=== PATIENT | female | born 1970 ===

== ENCOUNTER 2023-03-27 01:05 | Emergency (ER) | payer OTHER, SELFPAY ==
--- OUTSIDE RECORDS SUMMARY | 2023-03-27 01:07 | XMS REPORT | Clinical Summary ---
:1970 Author Organization [facility] MD [facility] Address [address] [place] [address] Care Team Providers Name Role Phone Donald You MD Unavailable Unavailable Amandeep Garcia MD Primary Care Provider Allergies No known active allergies Medications Medication Sig Dispensed Refills Start Date End Date Status ALPRAZolam (XANAX) 0.5 0 07/09/2019 Active mg tablet azelastine (ASTELIN) 0 07/09/2019 Active 137 mcg/spray nasal spray VYVANSE 30 mg capsule 0 06/24/2019 Active BYSTOLIC 10 mg tablet 0 06/13/2019 Active olopatadine (PATADAY) 0 06/29/2019 Active 0.2% drop ophthalmic solution valsartan-hydrochloroth 0 07/09/2019 Active iazide (DIOVAN-HCT) 320-12.5 mg per tablet zolpidem (AMBIEN) 10 mg 0 06/19/2019 Active tablet ibuprofen/famotidine Take 1 tablet by 0 Active ([place]IS ORAL) mouth as needed. Active Problems Problem Noted Date Cyst of breast 07/11/2019 Surgical History Surgery Date Site/Laterality Comments BACK SURGERY 01/10/1991 For scoliosis CHOLECYSTECTOMY 10/09/2000 - 10/08/2001 SECTION, CLASSIC x 3 Medical History Medical History Date Comments Hypertension 03/09/2010 Cyst of breast 03/09/2019 Gastric ulcer 10/09/2013 Gallstone 05/09/2001 Scoliosis 1987 Family History Medical History Relation Name Comments -Thoracic or Lung Maternal Grandmother Noemi Yang lung can cer Hodgkin's lymphoma Son Breast cancer Neg Hx Ovarian cancer Neg Hx Relation Name Status Comments Maternal Grandmother Noemi Yang Son Social History Tobacco Use Types Packs/Day Years Used Date Smoking Tobacco: Former Cigarettes 0.3 3 10/2002 - 10/09/2005 Smokeless Tobacco: Never Alcohol Use Standard Drinks/Week Comments Not Currently 0 (1 standard drink = 0.6 oz pure Very s eldom. Not sure of last time alcohol) Sex Assigned at Date Recorded Not on file Obstetrics History Para Term AB IAB SAB Ectopic Multiple Living Live Births 5 4 1 Date Outcome GA Total Labor/2nd/3rd Weight Sex Delivery Anes PTL Patricia A 1 A5 Name Clin Labor Para Para Para Para AB Comments Age of parity: 22 Age of menarche: 17 OCP: 12 years HRT: none Fertility treatments: none : 2 months Menopausal status: premenopausal (LMP: 0 06/28/19) Bra Size: C Last Filed Vital Signs Not on file Plan of Treatment Health Maintenance Due Date Last Done Comments COVID-19 Vaccination (#1) 1970 Results Not on fileafter 03/27/2022 Insurance Payer Benefit Plan / Subscriber ID Effective Dates Phone Addre ss Type Group [employer] MANAGED [employer] PPO POS [id number] 2017-Present [address] [place] [address] Care Teams Biomechanical Engineer Relationship Specialty Start Date End Date Donald You MD PCP - External Referring Family Practice 9 Amandeep Garcia MD PCP - General Breast Surgery 07/03/19 [address] [place] [address]
[2023-03-27 02:04] LABS: Absolute Lymphocytes (CBC) 1.8 K/uL (0.7-4.9); Hematocrit 32.3 % (36.0-45.0); Lymphocytes % 25.1 % (15.3-44.8); MCV 88.1 fL (80-100); MPV 8.5 fL (7.6-11.3); RBC Red Blood Cell Count 3.67 M/uL (3.86-4.86)
[2023-03-27 02:05] LABS: Protime INR 1.17
[2023-03-27 02:25] LABS: ALT/SGPT 24 U/L (13-56); AST/SGOT 13 U/L (15-37); Albumin 3.5 g/dL (3.4-5.0); Alkaline Phosphatase 81 U/L (45-117); BUN Blood Urea Nitrogen 18 mg/dL (7-18); Barbiturates NEGATIVE (NEGATIVE); Benzodiazepines NEGATIVE (NEGATIVE); Bicarbonate 27 mEq/L (21-32); Bilirubin Total 0.2 mg/dL (0.2-1.0); Cocaine NEGATIVE (NEGATIVE); Glomerular Filtration Rate 63 ml/min (=/>90); Glucose Level 110 mg/dL (74-106); METHAMPHETAM NEGATIVE (NEGATIVE); Magnesium 2.1 mg/dL (1.6-2.4); Methadone NEGATIVE (NEGATIVE); NT PRO-BNP 175 pg/mL (<125); Opiates NEGATIVE (NEGATIVE); Phencyclidine NEGATIVE (NEGATIVE); Potassium 3.3 mEq/L (3.5-5.1); Protein, Total 7.5 g/dL (6.4-8.2); Sodium Level 137 mEq/L (136-145); THC Cannibis POSITIVE (NEGATIVE); Troponin High Sensitivity 5.5 pg/mL (<58.9)
[2023-03-27 02:26] LABS: Bilirubin Direct < 0.1 mg/dL (0-0.2); Bilirubin Indirect, Calculated ND mg/dL (0.2-0.8)
--- NOTE | 2023-03-27 04:02 | ER ---
Nurse's Notes [facility] Name: Masha Parikh Age: 52 yrs Sex: Female : 1970 Arrival Date: 03/27/2023 Time: 01:05 Bed 16 Private MD: Diagnosis: Anxiety disorder, unspecified;Syncope Near Presentation: 03/27 01:25 Chief complaint: EMS states: "We were called out for not feeling well. When we arrived vc1 she was shaky with some anxiety, just seemed really nervous, bp systolic was in the 190's but came down when we arrived here. She said they had just ate and she took her ambien when she started to feel this way.". Coronavirus screen: Vaccine status: Patient reports receiving the 2nd dose of the covid vaccine. [place] Client denies travel out of the [place] in the last 14 days. At this time, the client does not indicate any symptoms associated with coronavirus-19. Ebola Screen: Patient negative for fever greater than or equal to 101.5 degrees Fahrenheit, and additional compatible Ebola Virus Disease symptoms Patient denies exposure to infectious person. Patient denies travel to an Ebola-affected area in the 21 days before illness onset. No symptoms or risks identified at this time. Initial Sepsis Screen: Does the patient meet any 2 criteria? No. Patient's initial sepsis screen is negative. Does the patient have a suspected source of infection? No. Patient's initial sepsis screen is negative. Risk Assessment: Do you want to hurt yourself or someone else? Patient reports no desire to harm self or others. Onset of symptoms was March 27, 2023. 01:25 Method Of Arrival: EMS: [facility] vc1 01:25 Acuity: ANGELO 3 vc1 01:25 Care prior to arrival: IV initiated. 20 GA, in the left antecubital area. vc1 Triage Assessment: 01:30 General: Appears uncomfortable, Behavior is cooperative, anxious. Pain: Denies pain. vc1 EENT: No deficits noted. No signs and/or symptoms were reported regarding the EENT system. Neuro: Level of Consciousness is awake, alert, obeys commands, Oriented to person, place, time, situation, Appropriate for age Reports dizziness. Cardiovascular: No deficits noted. Respiratory: Airway is patent Respiratory effort is even, unlabored, Respiratory pattern is regular, symmetrical. GI: No deficits noted. No signs and/or symptoms were reported involving the gastrointestinal system. : No deficits noted. No signs and/or symptoms were reported regarding the genitourinary system. Derm: No deficits noted. No signs and/or symptoms reported regarding the dermatologic system. Musculoskeletal: No deficits noted. No signs and/or symptoms reported regarding the musculoskeletal system. CARGOMAN: 01:30 LMP 03/17/2023 vc1 Historical: - Allergies: : No Known Allergies; vc1 - Home Meds: : Tramadol Oral [Active]; valsartan-hydrochlorothiazide oral [Active]; Bystolic oral vc1 [Active]; - PMHx: Insomnia; Hypertensive disorder; Chronic Joint Pain; vc1 - PSHx: None; vc1 - Immunization history:: Client reports receiving the 2nd dose of the Covid vaccine. - Social history:: Smoking status: Patient denies any tobacco usage or history of. Patient uses CBD oil. - Family history:: not pertinent. Screenin: Abuse screen: Denies threats or abuse. Nutritional screening: No deficits noted. vc1 Tuberculosis screening: No symptoms or risk factors identified. 01:30 [facility] ED Fall Risk Assessment (Adult) History of falling in the last 3 months, vc1 including since admission No falls in past 3 months (0 pts) Confusion or Disorientation No (0 pts) Intoxicated or Sedated No (0 pts) Impaired Gait No (0 pts) Mobility Assist Device Used No (0 pt) Altered Elimination No (0 pt) Score/Fall Risk Level 0 - 2 = Low Risk Oriented to surroundings, Maintained a safe environment, Educated pt \\T\\ family on fall prevention, incl call for assistance when getting out of bed. Assessment: 02:28 Reassessment: Patient and/or family updated on plan of care and expected duration. Pain vc1 level reassessed. Patient is alert, oriented x 3, equal unlabored respirations, skin warm/dry/pink. 03:30 Reassessment: No changes from previously documented assessment. Patient and/or family vc1 updated on plan of care and expected duration. Pain level reassessed. Patient is alert, oriented x 3, equal unlabored respirations, skin warm/dry/pink. Vital Signs: 01:25 BP 142 / 82; Pulse 76; Resp 13; Temp 97.9; Pulse Ox 100% ; Weight 92.08 kg; Height 5 vc1 ft. 4 in. ; Pain 0/10; 02:27 Pulse 63; Resp 12; Pulse Ox 99% ; vc1 02:30 BP 127 / 68; vc1 03:30 BP 137 / 67; Pulse 73; Resp 16; Pulse Ox 100% ; vc1 01:25 Body Mass Index 34.84 (92.08 kg, 162.56 cm) vc1 01:25 Pain Scale: Adult vc1 [place] Coma Score: 03:45 Eye Response: spontaneous(4). Motor Response: obeys commands(6). Verbal Response: sp4 oriented(5). Total: 15. NIH Stroke Scale Scores: 03:45 NIHSS Score: 0 sp4 ED Course: 01:06 Patient arrived in ED. sb4 01:14 Ari Caruso MD is Attending Physician. sp4 01:16 Jennifer Morales RN is Primary Nurse. vc1 01:25 Maintain EMS IV. Dressing intact. Good blood return noted. Site clean \\T\\ dry. vc1 01:27 Triage completed. vc1 01:30 Arm band placed on left wrist. vc1 01:30 Patient has correct armband on for positive identification. Bed in low position. Call vc1 light in reach. Client placed on continuous cardiac and pulse oximetry monitoring. NIBP monitoring applied. 01:46 Basic Metabolic Panel Sent. vc1 01:46 CBC with Diff Sent. vc1 01:46 LFT's Sent. vc1 01:46 Magnesium Sent. vc1 01:46 NT PRO-BNP Sent. vc1 01:46 PT-INR Sent. vc1 01:46 Troponin HS Sent. vc1 01:46 Urine Drug Screen Sent. vc1 02:15 CT Head Brain wo Cont In Process Unspecified. EDMS 02:22 XRAY Chest (1 view) In Process Unspecified. EDMS 04:41 No provider procedures requiring assistance completed. IV discontinued, intact, vc1 bleeding controlled, No redness/swelling at site. Pressure dressing applied. Administered Medications: No medications were administered Medication: 04:43 VIS not applicable for this client. vc1 Outcome: 04:02 Discharge ordered by . sp4 04:42 Discharged to home ambulatory. vc1 04:42 Condition: good 04:42 Discharge instructions given to patient, Instructed on discharge instructions, follow up and referral plans. Demonstrated understanding of instructions, follow-up care. 04:43 Patient left the ED. vc1 NIH Stroke Scale - NIH Stroke Score Date: 03/27/2023 Time: 03:45 Total Score = 0 10. Dysarthria (speech clarity - read or repeat words) - 0(Normal) 11. Extinction and Inattention (visual/tactile/auditory/spatial/personal) - 0(No abnormality) 1a. Level of Consciousness (LOC) - 0(Alert) 1b. Level of Consciousness (LOC) (Month \\T\\ Age) - 0(Both) 1c. LOC Commands (Open \\T\\ Closes Eyes/R Programmer) - 0(Both) 2. Best Gaze (Lateral Gaze Paresis) - 0(Normal) 3. Visual Field Loss - 0(No visual loss) 4. Facial Palsy - 0(Normal) 5a. Left Arm: Motor (10-second hold) - 0(No drift) 5b. Right Arm: Motor (10-second hold) - 0(No drift) 6a. Left Leg: Motor (5-second hold - always test supine) - 0(No drift) 6b. Right Leg: Motor (5-second hold - always test supine) - 0(No drift) 7. Limb Ataxia (finger/nose \\T\\ heel/hickey - test with eyes open) - 0(Absent) 8. Sensory Loss (pinprick arms/legs/face) - 0(Normal) 9. Best Language: Aphasia (description/naming/reading) - 0(No aphasia) Initials: sp4 Signatures: Dispatcher [employer] EDMS Jennifer Morales RN RN vc1 Sera Miner PAOraliaC PA-C sb4 Ari Caruso MD MD sp4
--- NOTE | 2023-03-27 04:02 | EDPHYS ---
Physician Documentation [facility] Name: Masha Parikh Age: 52 yrs Sex: Female : 1970 Arrival Date: 03/27/2023 Time: 01:05 Bed 16 Private MD: ED Physician Ari Caruso HPI: 03/27 01:14 This 52 yrs old Female presents to ER via Unassigned with complaints of sp4 Doesn't Feel Right. 03:45 52-year-old female presents for her cute onset of dizziness near syncopal episode at sp4 home associated with some anxiety. Patient states she ate [employer] and this has provoked dizziness after eating. Patient denies syncope, denied vomiting, she takes valsartan nebivolol for her blood pressure. She uses CBD oils.. 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 - Social history:: Smoking status: Patient denies any tobacco usage or history of. Patient uses CBD oil. - Family history:: not pertinent. ROS: 03:45 Constitutional: Negative for fever, chills, and weight loss, positive for near syncope sp4 and dizziness Eyes: Negative for injury, pain, redness, and discharge, ENT: Negative for injury, pain, and discharge, Neck: Negative for injury, pain, and swelling, Cardiovascular: Negative for chest pain, palpitations, and edema, Respiratory: Negative for shortness of breath, cough, wheezing, and pleuritic chest pain, Abdomen/GI: Negative for abdominal pain, nausea, vomiting, diarrhea, and constipation, Back: Negative for injury and pain, : Negative for injury, bleeding, discharge, and swelling, MS/Extremity: Negative for injury and deformity, Skin: Negative for injury, rash, and discoloration, Neuro: Negative for headache, weakness, numbness, tingling, and seizure, Psych: Negative for depression, anxiety, Allergy/Immunology: Negative for hives, rash, and allergies Endocrine: Negative for neck swelling, polydipsia, polyuria, polyphagia, and weight changes Hematologic/Lymphatic: Negative for swollen nodes, abnormal bleeding, and unusual bruising Exam: 03:45 Constitutional: This is a well developed, well nourished patient who is awake, alert, sp4 and in no acute distress. Head/Face: Normocephalic, atraumatic. Eyes: Pupils equal round and reactive to light, extra-ocular motions intact. Lids and lashes normal. Conjunctiva and sclera are not injected. Cornea within normal limits. Periorbital areas with no swelling, redness, or edema. ENT: Nares patent. No nasal discharge, no septal abnormalities noted. Tympanic membranes are normal and external auditory canals are clear. Oropharynx with no redness, swelling, or masses, exudates, or evidence of obstruction, uvula midline. Mucous membranes moist. Neck: Trachea midline, no thyromegaly or masses palpated, and no cervical lymphadenopathy. Supple, full range of motion without nuchal rigidity, or vertebral point tenderness. Chest/axilla: Normal chest wall appearance and motion. Nontender with no deformity. No lesions are appreciated. Cardiovascular: Regular rate and rhythm with a normal S1 and S2. No gallops, murmurs, or rubs. Normal PMI, no JVD. No pulse deficits. Respiratory: Lungs have equal breath sounds bilaterally, clear to auscultation and percussion. No rales, rhonchi or wheezes noted. No increased work of breathing, no retractions or nasal flaring. Abdomen/GI: Soft, non-tender, with normal bowel sounds. No distension or tympany. No guarding or rebound. No evidence of tenderness throughout. Back: No spinal tenderness. No costovertebral tenderness. Skin: Warm, dry with normal turgor. Normal color with no rashes, no lesions, and no evidence of cellulitis. MS/ Extremity: Pulses equal, no cyanosis. Neurovascular intact. Full, normal range of motion. Neuro: Awake and alert, GCS 15, oriented to person, place, time, and situation. Cranial nerves II-XII grossly intact. Motor strength 5/5 in all extremities. Sensory grossly intact. Psych: Awake, alert, with orientation to person, place and time. Behavior, mood, and affect are within normal limits 03:45 ECG was reviewed by the Attending Physician. EKG reveals sinus bradycardia at rate of 59, otherwise normal EKG Vital Signs: 01:25 BP 142 / 82; Pulse 76; Resp 13; Temp 97.9; Pulse Ox 100% ; Weight 92.08 kg; Height 5 vc1 ft. 4 in. ; Pain 0/10; 02:27 Pulse 63; Resp 12; Pulse Ox 99% ; vc1 02:30 BP 127 / 68; vc1 03:30 BP 137 / 67; Pulse 73; Resp 16; Pulse Ox 100% ; vc1 01:25 Body Mass Index 34.84 (92.08 kg, 162.56 cm) vc1 01:25 Pain Scale: Adult vc1 NIH Stroke Scale Scores: 03:45 NIHSS Score: 0 sp4 [place] Coma Score: 03:45 Eye Response: spontaneous(4). Motor Response: obeys commands(6). Verbal Response: sp4 oriented(5). Total: 15. MDM: 01:25 Patient medically screened. sp4 03:59 Differential Diagnosis altered mental status, Panic attack, anxiety.. Data reviewed: sp4 vital signs. Data reviewed: nurses notes, EMS record, lab test result(s), EKG, radiologic studies, CT scan, plain films. Consideration of Admission/Observation Escalation of care including admission/observation considered. ED course: Today's work-up basically revealed mildly depressed potassium but is otherwise normal. CT head is normal, chest x-ray is normal.. 03/27 01:24 Order name: Urine Drug Screen; Complete Time: 03:45 03/27 01:24 Order name: Basic Metabolic Panel; Complete Time: 03:45 03/27 01:24 Order name: CBC with Diff; Complete Time: 03:45 03/27 01:24 Order name: LFT's; Complete Time: 03:45 03/27 01:24 Order name: Magnesium; Complete Time: 03:45 03/27 01:24 Order name: NT PRO-BNP; Complete Time: 03:45 03/27 01:24 Order name: PT-INR; Complete Time: 03:45 03/27 01:24 Order name: Troponin HS; Complete Time: 03:45 03/27 01:24 Order name: XRAY Chest (1 view) 4 03/27 01:25 Order name: CT Head Brain wo Cont 4 03/27 01:24 Order name: EKG; Complete Time: 01:25 4 03/27 01:24 Order name: Cardiac monitoring; Complete Time: 01:34 4 03/27 01:24 Order name: EKG - Nurse/Tech; Complete Time: 02:17 4 03/27 01:24 Order name: IV Saline Lock; Complete Time: :46 4 03/27 01:24 Order name: Labs collected and sent; Complete Time: :46 4 03/27 01:24 Order name: O2 Per Protocol; Complete Time: : 4 03/27 01:24 Order name: O2 Sat Monitoring; Complete Time: :4 EC:45 Rate is 59 beats/min. Rhythm is regular, Sinus bradycardia. QRS [place] is Normal. [place] sp4 interval is normal. QRS interval is normal. QT interval is normal. T waves are Normal. No ST changes noted. Clinical impression: No evidence of ischemia. Interpreted by me. Administered Medications: No medications were administered Disposition Summary: 03/27/23 04:02 Discharge Ordered Location: Home sp4 Problem: new sp4 Symptoms: have improved sp4 Condition: Stable sp4 Diagnosis - Anxiety disorder, unspecified sp4 - Syncope Near sp4 Followup: sp4 - With: Private Physician - When: 7 - 10 days - Reason: Recheck today's complaints Discharge Instructions: - Discharge Summary Sheet sp4 - Panic Attack sp4 NIH Stroke Scale - NIH Stroke Score Date: 03/27/2023 Time: 03:45 Total Score = 0 10. Dysarthria (speech clarity - read or repeat words) - 0(Normal) 11. Extinction and Inattention (visual/tactile/auditory/spatial/personal) - 0(No abnormality) 1a. Level of Consciousness (LOC) - 0(Alert) 1b. Level of Consciousness (LOC) (Month \T\ Age) - 0(Both) 1c. LOC Commands (Open \T\ Closes Eyes/Machine Stamper) - 0(Both) 2. Best Gaze (Lateral Gaze Paresis) - 0(Normal) 3. Visual Field Loss - 0(No visual loss) 4. Facial Palsy - 0(Normal) 5a. Left Arm: Motor (10-second hold) - 0(No drift) 5b. Right Arm: Motor (10-second hold) - 0(No drift) 6a. Left Leg: Motor (5-second hold - always test supine) - 0(No drift) 6b. Right Leg: Motor (5-second hold - always test supine) - 0(No drift) 7. Limb Ataxia (finger/nose \T\ heel/hickey - test with eyes open) - 0(Absent) 8. Sensory Loss (pinprick arms/legs/face) - 0(Normal) 9. Best Language: Aphasia (description/naming/reading) - 0(No aphasia) Initials: sp4 Signatures: Dispatcher [employer] EDMS Jennifer Morales RN RN vc1 Ari Caruso MD MD sp4
[2023-03-27 04:49] VITALS: TEMP 97.9
[2023-03-27 04:52] VITALS: BP 137/67; O2SAT 100
--- NOTE | 2023-03-27 11:22 | RAD REPORT ---
EXAM DESCRIPTION: RAD - Chest Single View - 03/27/2023 2:21 am CLINICAL HISTORY: The patient is 52 years old and is Female; near syncope TECHNIQUE: Frontal view of the chest. COMPARISON: No relevant prior studies available. FINDINGS: Lungs: Unremarkable. No consolidation. Pleural space: Unremarkable. No pneumothorax. Heart: Unremarkable. Mediastinum: Unremarkable. Bones/joints: Fixation rods overlying the spine. IMPRESSION: No acute findings in the chest. Electronically signed by: Johnie Leblanc MD 03/27/2023 2:30 AM CDT Due to temporary technical issues with the PACS/Fluency reporting system, reports are being signed by the in house radiologist without review as a courtesy to ensure prompt reporting. The interpreting r adiologist is fully responsible for the content of the report.
--- NOTE | 2023-03-27 11:25 | RAD REPORT ---
EXAM DESCRIPTION: CT - Head Brain Wo Cont - 03/27/2023 6:18 am CLINICAL HISTORY: The patient is 52 years old and is Female; dizzyness TECHNIQUE: Axial computed tomography images of the head/brain without intravenous contrast. Sagitt al and coronal reformatted images were created and reviewed. This CT exam was performed using one o r more of the following dose reduction techniques: automated exposure control, adjustment of the mA and/or kV according to patient size, and/or use of iterative reconstruction technique. COMPARISON: No relevant prior studies available. FINDINGS: Brain: Mild nonspecific white matter changes likely related to chronic microvascular isc hemic disease. No hemorrhage. Ventricles: Unremarkable. No ventriculomegaly. Bones/joints: Unremarkable. No acute fracture. Soft tissues: Unremarkable. Sinuses: Unremarkable as visualized. Mastoid air cells: Unremarkable as visualized. No mastoid effusion. IMPRESSION: No acute intracranial abnormality. Electronically signed by: Johnie Leblanc MD 03/27/2023 2:28 AM CDT Due to temporary technical issues with the PACS/Fluency reporting system, reports are being signed by the in house radiologist without review as a courtesy to ensure prompt reporting. The interpreting r adiologist is fully responsible for the content of the report.
--- NOTE | 2023-03-27 17:50 | EKG ---
Test Date: 2023-03-27 Test Time: 02:12:21 Supervisor Riveting: HUGH MEASUREMENT RESULTS: Intervals: Rate: 59 NE: 164 QRSD: 86 QT: 428 QTc: 423 [place]: P: 56 NE: 164 QRS: -5 T: 25 INTERPRETIVE STATEMENTS: Sinus bradycardia Cannot rule out Anterior infarct, age undetermined Abnormal ECG No previous ECG available for comparison Electronically Signed On 03-27-23 17:48:51 CDT by Gunnar Blair
== END 2023-03-27 04:43 | disposition home or self-care (01) ==
LOC: ER 01:05
DX: F41.9 Anxiety disorder, unspecified (principal)
CPT/HCPCS: 36415; 70450; 71045; 80048; 80076; 80307; 83735; 83880; 84484; 85025; 85610; 93005; 99284